=== PATIENT | male | born 1955 | race African-American/Black ===

== ENCOUNTER 2020-08-21 04:28 | Day surgery (SDC) | payer OTHER ==
[2020-08-20 16:07] VITALS: BMI 49.1
[2020-08-21] MEDS ORDERED: PROPOFOL 20 ML ONE (08:09)
[2020-08-21] MEDS ORDERED: MIDAZOLAM HCL 2 MG/2 ML SINGLE DOSE VIAL ONE (08:09)
[2020-08-21] MEDS ORDERED: LIDOCAINE HCL 1%, 10 MG/ML (20ML VIAL) ONE (08:32)
[2020-08-21] MEDS ORDERED: HEPARIN NA (PORCINE) 5,000 UNITS/ML 1ML VIAL ONE (08:32)
[2020-08-21] MEDS ORDERED: ceFAZolin SODIUM 1 GM VIAL IVPB ONE (08:46)
[2020-08-21] MEDS ORDERED: ceFAZolin SODIUM 1 GM VIAL ONE (08:51)
[2020-08-21] MEDS ORDERED: LIDOCAINE HCL 1%, 10 MG/ML (20ML VIAL) INF ONE ×2 (09:01)
[2020-08-21 09:30] VITALS: TEMP 97.8
[2020-08-21] MEDS ORDERED: oxyCODONE HCL 5 MG TABLET PO PRN (10:23)
[2020-08-21] MEDS ORDERED: ONDANSETRON 4 MG/2 ML VIAL IVPUSH PRN (10:23)
[2020-08-21 11:09] VITALS: BP 136/94; PULSE 66
== END 2020-08-21 11:10 | disposition home or self-care (01) ==
LOC: JASU-SURG 04:28
PROVIDERS: ATTEND Surgery Vascular Surgery
PROC: 0JH63XZ Insertion of Tunneled Vascular Access Device into Chest Subcutaneous Tissue and Fascia, Percutaneous Approach (ICD-10-PCS; principal; 2020-08-21 08:30)
DX: I12.0 Hypertensive chronic kidney disease with stage 5 chronic kidney disease or end stage renal disease (principal); N18.6 End stage renal disease
CPT/HCPCS: 71045-TC-FY; 76000-TC-FY; 94760; J1644